=== PATIENT | female | born 1985 | race Asian ===

== ENCOUNTER 2018-10-27 17:15 | Emergency (ER) | payer OTHER ==
[~2018-10-27] VITALS: Ht 162.6 cm; Wt 47.2 kg
[2018-10-27 17:42] VITALS: BP 106/82; Ht 162.6 cm; Wt 47.2 kg
== END 2018-10-27 19:59 | disposition left against medical advice (07) ==
LOC: ED 17:15
DX: Z53.21 Procedure and treatment not carried out due to patient leaving prior to being seen by health care provider (principal)